=== PATIENT | female | born 2000 | race Two or more races ===

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

== ENCOUNTER 2022-05-15 20:47 | Emergency (ER) | payer OTHER ==
[~2022-05-15] VITALS: Ht 152.4 cm; Wt 46.3 kg
== END 2022-05-16 00:27 | disposition home or self-care (01) ==
LOC: ER 20:47
DX: J02.9 Acute pharyngitis, unspecified (principal); Z20.822 Contact with and (suspected) exposure to COVID-19

== ENCOUNTER 2022-05-18 15:07 | Emergency (ER) | payer OTHER ==
[~2022-05-18] VITALS: Ht 152.4 cm; Wt 45.4 kg
[2022-05-18] MEDS ORDERED: ZITHROMAX500 MG (15:28)
[2022-05-18] MEDS ORDERED: TUSSIN100 MG/51 (15:28)
== END 2022-05-18 19:12 | disposition home or self-care (01) ==
LOC: ER 15:07
DX: J02.9 Acute pharyngitis, unspecified (principal)

== ENCOUNTER 2024-06-09 19:16 | Emergency (ER) | payer OTHER ==
[~2024-06-09] VITALS: Ht 152.4 cm; Wt 46.3 kg
[~2024-06-09 19:16] MED LIST: TUSSIN100 MG/51; ZITHROMAX500 MG
[2024-06-09] MEDS ORDERED: GUAIFENESIN 200 MG/10 ML BLIST.PACK PO STA (20:23)
[2024-06-09] MEDS ORDERED: GUAIFENESIN 200 MG/10 ML BLIST.PACK PO ONE (21:41)
== END 2024-06-09 22:59 | disposition home or self-care (01) ==
LOC: ER 19:18
DX: J06.9 Acute upper respiratory infection, unspecified (principal); Z20.822 Contact with and (suspected) exposure to COVID-19